=== PATIENT | male | born 1970 | race Caucasian/White ===

== ENCOUNTER 2021-06-12 18:17 | Emergency (ER) | payer OTHER ==
[2021-06-12 18:23] VITALS: BP 161/98; PULSE 91; TEMP 98; BMI 34.9
[2021-06-12] MEDS ORDERED: ACETAMINOPHEN 500 MG TABLET (FP) PO ONE (19:35)
[2021-06-12] MEDS ORDERED: ACETAMINOPHEN 325 MG TABLET (FP) ONE (19:37)
== END 2021-06-12 20:33 | disposition home or self-care (01) ==
LOC: JER 18:17
DX: U07.1 COVID-19 (principal)
CPT/HCPCS: 99283-25; C9803; U0003; U0005

== ENCOUNTER 2021-07-29 00:48 | Emergency (ER) | payer OTHER ==
[2021-07-29 01:23] VITALS: BP 135/99; PULSE 95; TEMP 98.4; BMI 34.1
== END 2021-07-29 01:38 | disposition home or self-care (01) ==
LOC: JER 00:48
DX: M67.432 Ganglion, left wrist (principal)
CPT/HCPCS: 99282-25

== ENCOUNTER 2021-08-18 08:31 | Emergency (ER) | payer OTHER ==
[2021-08-18 08:41] VITALS: BP 128/90; PULSE 94; TEMP 97.9; BMI 34.6
[2021-08-18] MEDS ORDERED: ACETAMINOPHEN 500 MG TABLET (FP) PO ONE (09:49)
[2021-08-18] MEDS ORDERED: ACETAMINOPHEN 500 MG TABLET (FP) ONE (09:55)
== END 2021-08-18 10:11 | disposition home or self-care (01) ==
LOC: JERFT 08:31
DX: M79.651 Pain in right thigh (principal)
CPT/HCPCS: 99283-25

== ENCOUNTER 2022-03-11 13:04 | Emergency (ER) | payer OTHER ==
[2022-03-11 13:08] VITALS: BP 137/92; PULSE 100; RESP 18; TEMP 97; BMI 34.6
== END 2022-03-11 14:31 | disposition home or self-care (01) ==
LOC: JERFT 13:04
DX: L02.222 Furuncle of back [any part, except buttock and flank] (principal)
CPT/HCPCS: 99282-25

== ENCOUNTER 2023-07-21 08:20 | Emergency (ER) | payer OTHER ==
[2023-07-21 08:41] VITALS: BP 132/74; PULSE 94; RESP 16; TEMP 99.1; BMI 32.5
[2023-07-21] MEDS ORDERED: ALBUTEROL SO4 2.5/IPRATROPIUM 0.5 INH SOL 3 ML VIAL.NEB. NEB ONE (09:13)
[2023-07-21] MEDS ORDERED: LORATADINE 10 MG TABLET ONE (09:14)
[2023-07-21] MEDS: ALBUTEROL SO4 2.5/IPRATROPIUM 0.5 INH SOL 3 ML VIAL.NEB. NEB ONE (09:17)
[2023-07-21] MEDS: LORATADINE 10 MG TABLET PO ONE (09:17)
== END 2023-07-21 10:00 | disposition home or self-care (01) ==
LOC: JER 08:20
PROC: 3E0F7GC Introduction of Other Therapeutic Substance into Respiratory Tract, Via Natural or Artificial Opening (ICD-10-PCS; principal; 2023-07-21)
DX: R51.9 Headache, unspecified (principal); R05.9 Cough, unspecified; J34.89 Other specified disorders of nose and nasal sinuses; R06.2 Wheezing; R07.9 Chest pain, unspecified; R50.9 Fever, unspecified; J10.1 Influenza due to other identified influenza virus with other respiratory manifestations; Z20.822 Contact with and (suspected) exposure to COVID-19
CPT/HCPCS: 0241U-QW; 99283-25

== ENCOUNTER 2023-11-23 00:21 | Emergency (ER) | payer OTHER ==
[2023-11-23] MEDS: ALBUTEROL SO4 2.5/IPRATROPIUM 0.5 INH SOL 3 ML VIAL.NEB. NEB ONE (00:35)
[2023-11-23 00:40] VITALS: BP 136/81; PULSE 88; RESP 28; BMI 31.6
[2023-11-23] MEDS: DEXAMETHASONE 4 MG TABLET (FP) PO ONE (00:41)
[2023-11-23] MEDS ORDERED: DEXAMETHASONE 4 MG TABLET (FP) ONE (00:42)
[2023-11-23] MEDS: ALBUTEROL SO4 0.083% IH SOL 2.5 MG/3 ML VIAL.NEB. NEB SCH (02:25)
[2023-11-23] MEDS ORDERED: MAGNESIUM SULFATE IN WATER 2 GM/50 ML IVPB IVPB ONE (02:29)
[2023-11-23] MEDS ORDERED: ALBUTEROL SO4 0.083% IH SOL 2.5 MG/3 ML VIAL.NEB. NEB ONE (02:29)
[2023-11-23 02:58] LABS: BASO % 0.6 % (0-2.0); EOS % 1.3 % (0-4.5); HEMATOCRIT 42.6 % (35.4-49); HEMOGLOBIN 14.4 GM/dL (11.7-16.9); MCH 31.9 pg (25.7-33.7); MCHC 33.8 g/dl (32.0-35.9); MEAN CELL VOLUME 94.3 fl (80-96); MONO % 5.8 % (3.8-10.2); NEUT % 68.3 % (42.8-82.8); PLATELET COUNT 296 10^3/uL (134-434); RBC 4.51 M/mm3 (4.00-5.60); RDW 13.4 % (11.9-15.9); WHITE BLOOD COUNT 14.7 K/mm3 (4.0-10.0)
[2023-11-23 03:19] LABS: POTASSIUM 3.6 mmol/L (3.5-5.1)
[2023-11-23 03:21] LABS: BLOOD UREA NITROGEN 13.8 mg/dL (7-18); MAGNESIUM 1.9 mg/dL (1.8-2.4)
[2023-11-23 03:24] LABS: CREATININE 0.8 mg/dL (0.55-1.3)
[2023-11-23 03:26] LABS: BILIRUBIN,TOTAL 0.4 mg/dL (0.2-1); TOT PROT 6.8 g/dl (6.4-8.2)
[2023-11-23] MEDS: guaiFENesin 200 MG/10 ML 10 ML UNIT-DOSE CUPS PO ONE (03:40)
[2023-11-23] MEDS ORDERED: guaiFENesin 200 MG/10 ML 10 ML UNIT-DOSE CUPS ONE (03:42)
[2023-11-23] MEDS ORDERED: MONTELUKAST NA 10 MG TABLET ONE (04:35)
[2023-11-23] MEDS ORDERED: ALBUTEROL SO4 HFA INHALER IH ONE (04:35)
[2023-11-23] MEDS: MONTELUKAST NA 10 MG TABLET PO ONE (04:36)
[2023-11-23] MEDS: ALBUTEROL SO4 HFA INHALER IH ONE (04:37)
== END 2023-11-23 05:03 | disposition home or self-care (01) ==
LOC: JER 00:21
PROC: 3E033GC Introduction of Other Therapeutic Substance into Peripheral Vein, Percutaneous Approach (ICD-10-PCS; principal; 2023-11-23)
PROC: 3E0F7GC Introduction of Other Therapeutic Substance into Respiratory Tract, Via Natural or Artificial Opening (ICD-10-PCS; 2023-11-23)
PROC: 3E0F7GC Introduction of Other Therapeutic Substance into Respiratory Tract, Via Natural or Artificial Opening (ICD-10-PCS; 2023-11-23)
DX: J45.40 Moderate persistent asthma, uncomplicated (principal); R06.02 Shortness of breath; R05.9 Cough, unspecified; F17.210 Nicotine dependence, cigarettes, uncomplicated; Z20.822 Contact with and (suspected) exposure to COVID-19
CPT/HCPCS: 0241U-QW; 36415; 71045-TC-FY; 80053; 82962; 83735; 85025; 93005; 93010; 99285-25

== ENCOUNTER 2024-12-28 14:22 | Inpatient (IN) | payer OTHER ==
[2024-12-28 14:30] VITALS: BMI 29.0
[2024-12-28] MEDS: morphine CARPU-JECT 4 MG/1 ML DISP.SYRIN IVPUSH ONE ×2 (14:46→15:12)
[2024-12-28] MEDS: SODIUM CHLORIDE 0.9% 500 ML INFUS.BAG IV ONE (14:47)
[2024-12-28] MEDS: ACETAMINOPHEN 1000 MG/100 ML BAG IVPB ONE (14:49)
[2024-12-28 14:52] LABS: ABSOLUTE IMMATURE GRANULOCYTES 0.05 x10^3/uL (0.0-0.031); BASOPHILS # 0.10 x10^3/uL (0.01-0.08); EOSINOPHIL % 1.4 % (0.8-7.0); EOSINOPHILS # 0.18 x10^3/uL (0.04-0.54); MCHC 32.5 g/dl (32.3-36.5); MEAN CELL VOLUME 95.4 fl (79.0-92.2); MEAN PLT VOLUME 9.7 fl (9.4-12.4); MONOCYTE # 0.94 x10^3/uL (0.30-0.82); MONOCYTE % 7.3 % (5.3-12.2); RDW 12.3 % (12.2-16.1)
[2024-12-28 15:27] LABS: INR 1.05 (0.83-1.09); PROTHROMBIN TIME (PATIENT) 11.4 SEC (9.7-13.0)
[2024-12-28 15:29] LABS: CO2 28.0 mmol/L (21-32); GLUCOSE,RANDOM 185.0 mg/dL (74-106)
[2024-12-28 15:32] LABS: CREATININE 0.8 mg/dL (0.55-1.3); SGOT/AST 11.0 U/L (15-37); SGPT/ALT 30.0 U/L (13-61)
[2024-12-28 15:34] LABS: TOT PROT 6.8 g/dl (6.4-8.2)
[2024-12-28 15:35] LABS: ALK PHOS 80.0 U/L (45-117)
[2024-12-28] MEDS ORDERED: KETOROLAC TROMETHAMINE 30 MG/1 ML VIAL ONE (15:54)
[2024-12-28] MEDS ORDERED: DEXAMETHASONE SOD PHOSPHATE 10 MG/1 ML VIAL ONE (15:54)
[2024-12-28] MEDS: KETOROLAC TROMETHAMINE 30 MG/1 ML VIAL IVPUSH ONE (16:01)
[2024-12-28] MEDS: DEXAMETHASONE SOD PHOSPHATE 10 MG/1 ML VIAL IVPUSH ONE (16:12)
[2024-12-28 16:30] LABS: EPI CELLS 2 /uL (0-25.1); HYALINE CASTS 0 /uL (0-3.1); URINE APPEARANCE CLOUDY; URINE BACTERIA 4 /uL (0-1359); URINE BILIRUBIN NEGATIVE (NEGATIVE); URINE COLOR YELLOW; URINE GLUCOSE (UA) NEGATIVE (NEGATIVE); URINE KETONE 1+ (NEGATIVE); URINE LEUK ESTERASE NEGATIVE (NEGATIVE); URINE NITRITE NEGATIVE (NEGATIVE); URINE PROTEIN 1+ (NEGATIVE); URINE RBC 332 /uL (0-23.9); URINE UROBILINOGEN 1.0 mg/dL (0.2-1.0); URINE WBC 11 /uL (0-25.8)
[2024-12-28] MEDS ORDERED: MIDAZOLAM HCL 2 MG/2 ML SINGLE DOSE VIAL ONE (18:23)
[2024-12-28] MEDS ORDERED: LIDOCAINE HCL/PF 2% SDV 5ML VIAL ONE (18:23)
[2024-12-28] MEDS ORDERED: PROPOFOL 20 ML ONE (18:23)
[2024-12-28] MEDS ORDERED: PIPERACILLIN/TAZOB 4.5 GM 4.5 GM/100 ML BAG IVPB ONE (18:36)
[2024-12-28] MEDS: SODIUM CHLORIDE 1,000 ML IV SCH ×2 (18:41→22:57)
[2024-12-28] MEDS: PIPERACILLIN/TAZOB 4.5 GM 4.5 GM in DEXTROSE 5%-WATER 100 ML IVPB ONE (18:42)
[2024-12-28] MEDS ORDERED: PROMETHAZINE HCL 25 MG/1 ML VIAL IVPB PRN (19:48)
[2024-12-28] MEDS ORDERED: ONDANSETRON 4 MG/2 ML VIAL IVPUSH PRN (19:48)
[2024-12-28] MEDS ORDERED: LACTATED RINGERS SOLUTION 1,000 ML IV SCH (20:00)
[2024-12-28] MEDS: KETOROLAC TROMETHAMINE 15 MG/ML VIAL IVPUSH PRN (22:56)
[2024-12-28] MEDS: INSULIN ASPART SLIDING SCALE (NOVOLOG) 1 VIAL SQ SCH (23:03)
[2024-12-28] MEDS ORDERED: ALBUTEROL SO4 HFA INHALER IH PRN (23:43)
[2024-12-29] MEDS ORDERED: PIPERACILLIN/TAZOB 3.375 GM 3.375 GM in DEXTROSE 5%-WATER - 50 ML IVPB SCH (02:00)
[2024-12-29] MEDS: PIPERACILLIN/TAZOB 3.375 GM 3.375 GM in DEXTROSE 5%-WATER - 50 ML IVPB SCH (02:13)
[2024-12-29] MEDS: morphine CARPU-JECT 2 MG/1 ML DISP.SYRIN IVPUSH PRN (04:27)
[2024-12-29 06:01] VITALS: RESP 20
[2024-12-29] MEDS: TAMSULOSIN HCL 0.4 MG CAP PO SCH (08:10)
[2024-12-29] MEDS ORDERED: TAMSULOSIN HCL 0.4 MG CAP PO SCH (08:30)
[2024-12-29 09:07] LABS: ABSOLUTE IMMATURE GRANULOCYTES 0.06 x10^3/uL (0.0-0.031); BASOPHILS # 0.02 x10^3/uL (0.01-0.08); EOSINOPHIL % 0.0 % (0.8-7.0); EOSINOPHILS # 0.00 x10^3/uL (0.04-0.54); MCHC 33.5 g/dl (32.3-36.5); MEAN CELL VOLUME 93.7 fl (79.0-92.2); MEAN PLT VOLUME 10.1 fl (9.4-12.4); MONOCYTE # 0.45 x10^3/uL (0.30-0.82); MONOCYTE % 3.3 % (5.3-12.2); RDW 12.5 % (12.2-16.1)
[2024-12-29] MEDS: SODIUM CHLORIDE 500 ML IV STA (09:46)
[2024-12-29 09:56] LABS: CO2 24.0 mmol/L (21-32); GLUCOSE,RANDOM 116.0 mg/dL (74-106)
[2024-12-29 09:57] LABS: CREATININE 0.6 mg/dL (0.55-1.3)
[2024-12-29 09:59] LABS: TOT PROT 6.2 g/dl (6.4-8.2)
[2024-12-29 10:00] LABS: ALK PHOS 64.0 U/L (45-117); SGOT/AST 14.0 U/L (15-37); SGPT/ALT 24.0 U/L (13-61)
[2024-12-29] MEDS: LIDOCAINE 5% TOPICAL PATCH TP ONE (10:24)
[2024-12-29] MEDS ORDERED: INSULIN ASPART SLIDING SCALE (NOVOLOG) 1 VIAL SQ ONE (11:27)
[2024-12-29 13:21] VITALS: BP 133/87; PULSE 80; TEMP 98
[2024-12-29] MEDS ORDERED: ATORVASTATIN CA 10 MG TABLET (FP) PO SCH (22:00)
[2024-12-29] MEDS ORDERED: LIDOCAINE PATCH REMOVAL MC SCH (22:00)
== END 2024-12-29 11:30 | disposition home or self-care (01) | DRG 661 ==
LOC: JER 14:22 → JERBED 18:25 → J8W 20:50 → OBSVTOIN 21:36
PROVIDERS: ADMIT Student in an Organized Health Care Education/Training Program; ATTEND Nurse Practitioner Family
PROC: 0T778DZ Dilation of Left Ureter with Intraluminal Device, Via Natural or Artificial Opening Endoscopic (ICD-10-PCS; principal; 2024-12-28 18:27)
DX: N13.2 Hydronephrosis with renal and ureteral calculous obstruction (principal); E11.9 Type 2 diabetes mellitus without complications; K57.90 Diverticulosis of intestine, part unspecified, without perforation or abscess without bleeding; J45.909 Unspecified asthma, uncomplicated
CPT/HCPCS: 36415; 74177-TC; 76000-TC-FY; 80053; 81003; 82962; 83735; 84100; 85025; 85610; 86850; 86900; 86901; 87086; 94760; 97116-GP; 97161-GP; 99285-25; C2617; G0378; J1100; Q9967